=== PATIENT | female | born 1980 | race Caucasian/White ===

== ENCOUNTER 2021-04-13 15:49 | Emergency (ER) | payer OTHER, SELFPAY ==
--- NOTE | 2021-04-13 15:51 | ED.FEMALEGU ---
HPI - Female Genitourinary General Chief complaint: Urogenital-Female Stated complaint: Possible UTI Time Seen by Provider: 04/13/21 15:51 Source: patient and RN notes reviewed History of Present Illness HPI Narrative: Patient is a 40-year-old female who presents the urgent care with complaints of urinary frequency, urgency and dysuria. Patient states it started 2 days ago and she has been taking Uristat [id number]. Patient states that she was recently on vacation and believes that she sat in a wet swimsuit for too long. Denies of any hematuria, vaginal discharge, fever, nausea, vomiting. No other acute complaints. No acute distress noted. Patient aware of the plan of care. Some parts of this dictation were generated by voice recognition software and may contain typographical and/or grammatical inaccuracies. Related Data Home Medications Medication Instructions Recorded Confirmed No Home Medications 04/13/21 04/13/21 Allergies Allergy/AdvReac Type Severity Reaction Status Date / Time nitrofurantoin Allergy Intermediate Hives, SOB Verified 07/29/20 10:56 [From Macrobid] Penicillins Allergy Unknown Hives Verified 07/29/20 10:56 Review of Systems Review of Systems: CONSTITUTIONAL: Denies fever, chills, or sweats. EYES: Denies visual changes, redness, or discharge. ENT: Denies rhinorrhea, congestion, sore throat, or otalgia. CARDIOVASCULAR: Denies chest pain, palpitations, or edema. RESPIRATORY: Denies cough or dyspnea. GASTROINTESTINAL: Denies abdominal pain, nausea, vomiting, or diarrhea. GENITOURINARY: Reports of dysuria, urinary frequency, urgency SKIN: Denies rash or itching. MUSCULOSKELETAL: Denies back pain, joint pain, or myalgia. NEUROLOGIC: Denies headache, numbness, or weakness. All other systems reviewed are negative, except as documented in HPI. [facility] Past Medical History Medical History 2001 Anxiety Depression Missed 2017, x2 Vaginal delivery x3 Surgical History Surgical History History of dilation and curettage 2017 History of loop electrical excision procedure (LEEP) History of removal of cyst left breast cyst x2 Family History Family History Grandparent Breast cancer Acute myocardial infarction grandmother Hypertension grandmother Cerebrovascular accident grandmother Social History Social History Smoking status: Current every day smoker Tobacco type: e-cigarettes/vaping Alcohol intake: current Drinks per week: 3 Substance use: never Gender identity (if verbalized by the patient): Female Comments At the time of my signature, I reviewed and agree with the nursing past medical, surgical, social, and family history. There is no relevant family history pertinent to the patient complaint. Exam Narrative: GENERAL: This is a well-nourished, well-developed patient, in no apparent distress. HEAD: normocephalic, atraumatic. EYES: PERRL. Sclera clear/white. Vision is grossly intact. EARS: External ears normal NOSE: External nose normal with no obvious nasal discharge, nares without redness, no rhinorrhea. THROAT: Mucous membranes moist NECK: Neck supple CARDIOVASCULAR: Regular rate and rhythm without murmurs, gallops, or rubs. RESPIRATORY: Clear to auscultation. Breath sounds equal bilaterally. No wheezes, rales, or rhonchi. GASTROINTESTINAL: Abdomen soft, non-tender, nondistended. SKIN: warm, intact with no suspicious lesions or rash, good texture and turgor. NEURO: awake, alert, and oriented to person, place and time. There were no obvious focal neurologic abnormalities. EXTREMITIES: No clubbing, cyanosis, or edema. BACK: Negative bilateral CVA tenderness Course Vital
[2021-04-13 15:58] VITALS: BP 113/74; PULSE 76; RESP 20; TEMP 37.1; O2SAT 100
== END 2021-04-13 16:29 | disposition home or self-care (01) ==
PROVIDERS: Emergency Provider Nurse Practitioner Family; PCP Physician Assistant
DX: N39.0 Urinary tract infection, site not specified (principal)
CPT/HCPCS: 81003; 87077; 87086; 87088; 87186; 99213; G0463

== ENCOUNTER 2022-05-17 16:50 | Emergency (ER) | payer OTHER, SELFPAY ==
[2022-05-17 17:09] VITALS: BP 123/81; PULSE 90; RESP 20; TEMP 37; O2SAT 100
--- NOTE | 2022-05-17 17:22 | ECG_ITS ---
Measurements Intervals [place] Rate: 66 P: 64 MO: 144 QRS: 72 QRSD: 85 T: 55 QT: 391 QTc: 410 Interpretive Statements SINUS RHYTHM POSSIBLE LEFT ATRIAL ENLARGEMENT BORDERLINE T WAVE ABNORMALITY- ANTERIOR LEADS BORDERLINE ECG NO PREVIOUS ECG AVAILABLE FOR COMPARISON Electronically Signed On 05-17-2022 20:58:50 CDT by Maurilio Aden D.O.
== END 2022-05-17 17:35 | disposition left against medical advice (07) ==
PROVIDERS: Emergency Provider Nurse Practitioner Family; PCP Physician Assistant
DX: R00.2 Palpitations (principal)
CPT/HCPCS: 93005; 99199

== ENCOUNTER 2022-08-11 14:14 | Emergency (ER) | payer OTHER, SELFPAY ==
[2022-08-11 14:18] VITALS: BP 115/73; PULSE 92; RESP 16; TEMP 37.2; O2SAT 100
--- NOTE | 2022-08-11 17:09 | ED.URI ---
HPI - URI/Sore Throat General Chief Complaint: Upper Respiratory Infection Stated Complaint: sore throat Time Seen by Provider: 08/11/22 17:09 Source: patient, RN notes reviewed and old records reviewed Mode of arrival: ambulatory Limitations: no limitations History of Present Illness HPI Narrative: 41-year-old female who presents Care with complaints of sore throat, headaches, body aches, low grade temps for the past 2 days. Patient reports that she has been taking Tylenol and Ibuprofen for her discomfort which she rates as 6/10 aching with increased discomfort with swallowing. Patien has had COVID vaccinations but has not had flu shot. MD elicited complaint: sore throat and other (headache and body ache) Onset (ago): day(s) (2) Pain scale (0-10): 6 Exacerbating factors: swallowing Treatments prior to arrival: acetaminophen and ibuprofen Related Data Home Medications Medication Instructions Recorded Confirmed metoprolol succinate 25 mg 25 mg PO DAILY 08/11/22 08/11/22 tablet,extended release 24 hr Allergies Allergy/AdvReac Type Severity Reaction Status Date / Time nitrofurantoin Allergy Intermediate Hives, SOB Verified 08/11/22 16:08 [From Macrobid] Penicillins Allergy Unknown Hives Verified 08/11/22 16:08 Review of Systems Review of Systems: CONSTITUTIONAL:reports malaise, chills, sweats, or fever. EYES: Denies visual changes, redness, or discharge. ENT: Reports rhinorrhea, congestion, sinus pain,no otalgia positive for sore throat. CARDIOVASCULAR: Denies chest pain, palpitations, or edema. RESPIRATORY: Reports dry cough.? Denies dyspnea. GASTROINTESTINAL: Denies abdominal pain, nausea, vomiting, diarrhea SKIN: Denies rash or itching. MUSCULOSKELETAL: Reports myalgia. NEUROLOGIC: Reports headache. All systems reviewed & are unremarkable except as noted in HPI and below PMFSH Past Medical History Medical History (Updated 08/16/22 @ 21:15 by Elizabeth Menezes NP) x1 Anxiety COVID-19 2020 Depression Missed x2 Vaginal delivery x3 Surgical History Surgical History History of dilation and curettage 2016 History of loop electrical excision procedure (LEEP) History of removal of cyst left breast cyst x2 Family History Family History Grandparent Breast cancer Acute myocardial infarction grandmother Hypertension grandmother Cerebrovascular accident grandmother Social History Social History (Updated 08/16/22 @ 21:18 by Elizabeth Menezes NP) Smoking status: Former smoker Tobacco type: cigarettes and e-cigarettes/vaping Alcohol intake: current Drinks per week: 3 Substance use: never Gender identity (if verbalized by the patient): Female Comments At time of signature, agree with nursing past medical, surgical, social and family history. There is no relevant family history pertinent to the presenting complaint Exam Narrative: GENERAL: Well-appearing, well-nourished, and in no acute distress. HEAD: Normocephalic EYES: PERRLA, conjunctivae clear ENT: Nares clear, turbinates edematous and erythematous, clear discharge. Mucous membranes moist. TM pearly sanchez with dull light reflex bilaterally; no tragal tenderness. Oropharynx erythematous without lesions. Tonsils red and enlarged, without exudate, no drooling, no hoarseness, no trismus, uvula midline.some post nasal drainage NECK: Supple. lymphadenopathy CHEST: Clear to auscultation, breath sounds equal. No wheezing, rhonchi, rales, or stridor. No respiratory distress, speaks in full sentences. occasional dry cough SAO2 100% on room air HEART: Regular rate and rhythm. No murmur heard. SKIN: Warm, dry, no rash. NEURO: Alert and oriented x3. PSYCH: Normal mood and affect Course Course Emergency Course: Patient is aware of diagnosis, unde
== END 2022-08-11 17:15 | disposition home or self-care (01) ==
PROVIDERS: Emergency Provider Registered Nurse; PCP Physician Assistant
DX: J02.0 Streptococcal pharyngitis (principal); F17.290 Nicotine dependence, other tobacco product, uncomplicated
CPT/HCPCS: 87804; 99213; G0463

== ENCOUNTER 2022-11-02 15:54 | Emergency (ER) | payer OTHER, SELFPAY ==
[2022-11-02 16:04] VITALS: BP 129/81; PULSE 72; RESP 16; TEMP 36.8; O2SAT 100
--- NOTE | 2022-11-02 16:16 | ED.UPPEXIN ---
HPI - Extremity Injury (Upper) General Chief Complaint: Extremity Injury, Upper Stated Complaint: Left Shoulder/Arm Pain Source: patient and RN notes reviewed History of Present Illness HPI narrative: 42-year-old male presents to urgent care with complaints of left posterior shoulder pain that radiated down her left arm into her fingers. Pt states it started yesterday and last approximately 3-4 hours. Pt states she felt tingling in her arm and hand. Pt states she felt pain radiate to her left jaw as well. Pt reports hx of PVCs and states she wore a Holter monitor for these about 6 months ago x 1 month with no findings. Pt states today, she feels just soreness to her posterior shoulder and down her arm. Pt states she took an ibuprofen last night with moderate relief. Denies any chest pain, SOB, dizziness, diaphoresis, nausea, or vomiting. Denies any injury. Related Data Allergies Allergy/AdvReac Type Severity Reaction Status Date / Time nitrofurantoin Allergy Intermediate Hives, SOB Verified 08/11/22 16:08 [From Macrobid] Penicillins Allergy Unknown Hives Verified 08/11/22 16:08 Review of Systems Review of Systems: CONSTITUTIONAL: Denies fever, chills, or sweats. EYES: Denies visual changes, redness, or discharge. ENT: Denies otalgia and sore throat CARDIOVASCULAR: Denies chest pain, palpitations, or edema. RESPIRATORY: Denies cough or dyspnea. GASTROINTESTINAL: Denies abdominal pain, nausea, vomiting, or diarrhea. GENITOURINARY: Denies dysuria or hematuria. SKIN: Denies rash or itching. MUSCULOSKELETAL: Reports left posterior shoulder pain radiated down left arm and up into left jaw yesterday. NEUROLOGIC: Denies headache, numbness, or weakness. [facility] Past Medical History Medical History (Updated 11/02/22 @ 16:17 by oLuann Bonds, JOSHUA) x1 Anxiety COVID-19 2020 Depression Missed x2 Vaginal delivery x3 Surgical History Surgical History History of dilation and curettage 2017 History of loop electrical excision procedure (LEEP) History of removal of cyst left breast cyst x2 Family History Family History Grandparent Breast cancer Acute myocardial infarction grandmother Hypertension grandmother Cerebrovascular accident grandmother Social History Social History (Updated 08/16/22 @ 21:18 by Elizabeth Menezes NP) Smoking status: Former smoker Tobacco type: cigarettes and e-cigarettes/vaping Alcohol intake: current Drinks per week: 3 Substance use: never Gender identity (if verbalized by the patient): Female Comments At the time of my signature, I reviewed and agree with the nursing past medical, surgical, social, and family history. There is no relevant family history pertinent to the patient complaint. Exam Narrative: GENERAL: This is a well-nourished, well-developed patient, in no apparent distress. HEAD: normocephalic, atraumatic. EYES: PERRL. Sclera clear/white. Vision is grossly intact. EARS: External ears normal, auditory canals clear and without drainage, TMs normal without perforation. Hearing grossly intact. NOSE: External nose normal with no obvious nasal discharge, nares without redness, no rhinorrhea. THROAT: Mucous membranes moist, posterior pharynx clear. NECK: Neck supple, non-tender without lymphadenopathy, masses or thyromegaly. CARDIOVASCULAR: Regular rate and rhythm without murmurs, gallops, or rubs. RESPIRATORY: Clear to auscultation. Breath sounds equal bilaterally. No wheezes, rales, or rhonchi. GASTROINTESTINAL: Abdomen soft, non-tender, nondistended. Bowel sounds are active. No hepato-splenomegaly, or palpable masses. No guarding. SKIN: warm, intact with no suspicious lesions or rash, good texture and turgor. NEURO: awake, alert, and oriented to person, place and time. There were no obvious focal neurologic ab
== END 2022-11-02 16:27 | disposition home or self-care (01) ==
PROVIDERS: Emergency Provider Nurse Practitioner Family
DX: M54.12 Radiculopathy, cervical region (principal); Z87.891 Personal history of nicotine dependence
CPT/HCPCS: 99213; G0463

== ENCOUNTER 2023-06-06 16:06 | Emergency (ER) | payer OTHER, SELFPAY ==
[2023-06-06 16:17] VITALS: BP 116/77; PULSE 65; RESP 16; TEMP 37; O2SAT 98
--- NOTE | 2023-06-06 16:29 | ED.FEMALEGU ---
HPI - Female Genitourinary General Chief complaint: Urogenital-Female Stated complaint: Poss uti History of Present Illness HPI Narrative: PATIENT PRESENTS WITH A HISTORY OF URINARY TRACT INFECTIONS. PATIENT SAYS BURNING WITH URINATION AND URINARY FREQUENCY. PATIENT STARTED TAKING AZO TODAY FOR HER SYMPTOMS. PATIENT DENIES ANY PELVIC PAIN NO FLANK PAIN NO GROSS HEMATURIA NO ABDOMINAL PAIN AND NO CONCERN FOR STDS. Related Data Home Medications Medication Instructions Recorded Confirmed escitalopram oxalate 5 mg tablet mg 06/06/23 metoprolol succinate 25 mg mg PO 06/06/23 tablet,extended release 24 hr Allergies Allergy/AdvReac Type Severity Reaction Status Date / Time nitrofurantoin Allergy Intermediate Hives, SOB Verified 08/11/22 16:08 [From Macrobid] Penicillins Allergy Unknown Hives Verified 08/11/22 16:08 Review of Systems Review of Systems: CONSTITUTIONAL: DENIES FEVER, CHILLS, OR SWEATS. EYES: DENIES VISUAL CHANGES, REDNESS, OR DISCHARGE. ENT: DENIES RHINORRHEA, CONGESTION, SORE THROAT, OR OTALGIA. CARDIOVASCULAR: DENIES CHEST PAIN, PALPITATIONS, OR EDEMA. RESPIRATORY: DENIES COUGH OR DYSPNEA. GASTROINTESTINAL: DENIES ABDOMINAL PAIN, NAUSEA, VOMITING, OR DIARRHEA. GENITOURINARY: DENIES DYSURIA OR HEMATURIA. SKIN: DENIES RASH OR ITCHING. MUSCULOSKELETAL: DENIES BACK PAIN, JOINT PAIN, OR MYALGIA. NEUROLOGIC: DENIES HEADACHE, NUMBNESS, OR WEAKNESS. PSYCHIATRIC: DENIES ANXIETY OR DEPRESSION. Allergic/Immunologic: Comments: AT TIME OF SIGNATURE, AGREE WITH NURSING PAST MEDICAL, SURGICAL, SOCIAL AND FAMILY HISTORY. THERE IS NO RELEVANT FAMILY HISTORY PERTINENT TO THE PRESENTING COMPLAINT [facility] Past Medical History Medical History (Updated 06/06/23 @ 16:30 by ANASTACIO Rashid) x1 Anxiety COVID-19 2020 Depression Missed x2 Vaginal delivery x3 Surgical History Surgical History History of dilation and curettage 2017 History of loop electrical excision procedure (LEEP) History of removal of cyst left breast cyst x2 Family History Family History Grandparent Breast cancer Acute myocardial infarction grandmother Hypertension grandmother Cerebrovascular accident grandmother Social History Social History (Updated 08/16/22 @ 21:18 by Elizabeth Menezes NP) Smoking status: Former smoker Tobacco type: cigarettes and e-cigarettes/vaping Alcohol intake: current Drinks per week: 3 Substance use: never Gender identity (if verbalized by the patient): Female Exam Narrative: GENERAL: WELL-APPEARING, WELL-NOURISHED, AND IN NO ACUTE DISTRESS. HEAD: NORMOCEPHALIC, ATRAUMATIC. EYES: PERRLA AND EOMI. ENT: NARES CLEAR, NO RHINORRHEA OR EPISTAXIS. MUCOUS MEMBRANES MOIST. NECK: SUPPLE. CHEST: CLEAR TO AUSCULTATION. NO RESPIRATORY DISTRESS. HEART: REGULAR RATE AND RHYTHM. NO MURMUR HEARD. NORMAL PERIPHERAL PULSES. ABDOMEN: SOFT, NONTENDER, NONDISTENDED, NORMAL ACTIVE BOWEL SOUNDS. EXTREMITIES: NORMAL RANGE OF MOTION. NO EDEMA. SKIN: WARM, DRY, NO RASH. NEURO: NO FOCAL DEFICITS. ALERT AND ORIENTED X3. GERTRUDIS COMA SCALE EYE OPENING: SPONTANEOUS 4 GERTRUDIS COMA SCALE MOTOR: OBEYS COMMANDS 6 GERTRUDIS COMA SCALE VERBAL: ORIENTED 5 GERTRUDIS COMA SCALE TOTAL 15 Course Course Level of Care: Express Care Visit Vital Signs Vital signs: Vital Signs Temperature 37.0 C 06/06/23 16:17 Pulse Rate 65 06/06/23 16:17 Respiratory Rate 16 06/06/23 16:17 Blood Pressure 116/77 06/06/23 16:17 Pulse Oximetry 98 06/06/23 16:17 Oxygen Delivery Room Air 06/06/23 16:17 Temperature 37.0 C 06/06/23 16:17 Pulse Rate 65 06/06/23 16:17 Respiratory Rate 16 06/06/23 16:17 Blood Pressure 116/77 06/06/23 16:17 Pulse Oximetry 98 06/06/23 16:17 Oxygen Delivery Room Air 06/06/23 16:17
== END 2023-06-06 16:41 | disposition home or self-care (01) ==
PROVIDERS: Emergency Provider Nurse Practitioner Family; PCP Hospitalist
DX: N39.0 Urinary tract infection, site not specified (principal); Z79.899 Other long term (current) drug therapy; Z87.891 Personal history of nicotine dependence
CPT/HCPCS: 81003; 87077; 87086; 87186; 99213; G0463

== ENCOUNTER 2024-01-20 08:14 | Emergency (ER) | payer OTHER, SELFPAY ==
[2024-01-20 08:18] VITALS: BP 119/64; PULSE 92; RESP 16; TEMP 37.1; O2SAT 100
--- NOTE | 2024-01-20 08:27 | ED.URI ---
HPI - URI/Sore Throat General Chief Complaint: Upper Respiratory Infection Stated Complaint: Sore Throat/Body Aches Time Seen by Provider: 01/20/24 08:27 Source: patient, RN notes reviewed and old records reviewed Mode of arrival: ambulatory Limitations: no limitations History of Present Illness HPI Narrative: 43-year-old female presents to the [facility] with complaints of a sore throat and body aches that started yesterday. Denies fevers. No treatment prior to arrival Onset (ago): day(s) (1) Related Data Home Medications Medication Instructions Recorded Confirmed escitalopram oxalate 5 mg tablet mg 06/06/23 metoprolol succinate 25 mg mg PO 06/06/23 tablet,extended release 24 hr Allergies Allergy/AdvReac Type Severity Reaction Status Date / Time nitrofurantoin Allergy Intermediate Hives, SOB Verified 08/11/22 16:08 [From Macrobid] Penicillins Allergy Unknown Hives Verified 08/11/22 16:08 Review of Systems Review of Systems: All systems reviewed & are unremarkable except as noted in HPI and below Constitutional: Constitutional: Reports as per HPI, Reports body ache(s) and Reports chills Eyes: Eyes: Reports no additional eye complaints ENT: Reports as per HPI and Reports sore throat Cardiovascular: Cardiovascular: Reports no additional cardiovascular complaints, Denies chest pain and Denies dyspnea Respiratory: Respiratory: Reports no additional respiratory complaints, Denies chest congestion, Denies cough and Denies dyspnea Gastrointestinal: Gastrointestinal: Reports no additional gastrointestinal complaints, Denies abdominal pain, Denies nausea and Denies vomiting Musculoskeletal: Musculoskeletal: Reports no additional musculoskeletal complaints Integumentary/Breasts: Skin/Breast: Reports system reviewed and no additional complaints, except as docu Neurologic: Reports system reviewed and no additional complaints, except as documented Psychiatric: Psychiatric: Reports no additional psychiatric complaints Allergic/Immunologic: Allergic/Immunologic: Reports no additional allergic/immunologic complaints PMFSH Past Medical History Medical History x1 Anxiety COVID-19 2020 Depression Missed x2 Vaginal delivery x3 Surgical History Surgical History History of dilation and curettage 2017 History of loop electrical excision procedure (LEEP) History of removal of cyst left breast cyst x2 Family History Family History Grandparent Breast cancer Acute myocardial infarction grandmother Hypertension grandmother Cerebrovascular accident grandmother Social History Social History Smoking status: Former smoker Tobacco type: cigarettes and e-cigarettes/vaping Alcohol intake: current Drinks per week: 3 Substance use: never Gender identity (if verbalized by the patient): Female Comments At the time of my signature, I reviewed and agree with the nursing past medical, surgical, social, and family history. There is no relevant family history pertinent to the patient complaint. Exam Const: General: cooperative, no acute distress, well developed, alert, uncomfortable and well nourished Nutritional Appearance: well nourished Orientation/consciousness: patient oriented x3 Limitations: no limitations HENMT: Head: normal to inspection Ears: hearing grossly normal bilaterally, external ears normal, TM's normal bilaterally, EAC's normal, mastoids normal and no periauricular adenopathy Face/Nose/Sinus: Normal external nose present, Normal nares present, Normal nasal mucous membranes and turbinates present, normal facial exam and face symmetric Face and sinus: normal facial exam and face symmetric Mouth: Yes Normal oral and palat
== END 2024-01-20 08:42 | disposition home or self-care (01) ==
PROVIDERS: Emergency Provider Nurse Practitioner; PCP Hospitalist
DX: J02.0 Streptococcal pharyngitis (principal); Z87.891 Personal history of nicotine dependence; Z86.16 Personal history of COVID-19
CPT/HCPCS: 87880; 99213; G0463